=== PATIENT | female | born 1965 | race Hispanic/Latino ===

== ENCOUNTER 2017-02-04 13:03 | Emergency (ER) | payer MEDICAID ==
[2017-02-04 13:03] VITALS: BMI 26.5
[2017-02-04 13:39] VITALS: BP 120/84; PULSE 75; RESP 19; TEMP 98.9; O2SAT 100
--- NOTE | 2017-02-04 13:51 | ED PDOC ---
Arrival/HPI - General Chief Complaint: ENT Problem Time Seen by Provider: 02/04/17 13:47 Historian: Patient - History of Present Illness Narrative History of Present Illness (Text): 02/04/17 13:50 51-year-old female presents today with bilateral ear pain 1 week left greater than right. Patient denies fevers or chills. She is complaining of severe pain to the left ear worsening over the past few days. She describes the pain as sharp and throbbing. She is complaining of decreased hearing in the left ear. She is complaining of slight headache. Denies blurred vision. No medications have been taken for pain at home. Patient denies vomiting. No cough. Patient states the pain started in the right ear about a week ago. Time/Duration: 1 week Symptom Onset: Gradual Symptom Course: Worsening Quality: Pressure, Stabbing, Throbbing Severity Level: 8 Past Medical History - Provider Review Nursing Documentation Reviewed: Yes - Travel History Have you recently traveled outside [place] w/in the past 3 mons?: No - Infectious Disease Hx of Infectious Diseases: None - Tetanus Immunization Tetanus Immunization: Unknown - Reproductive Menopause: Yes - Psychiatric Hx Depression: No Hx Emotional Abuse: No Hx Physical Abuse: No Hx Substance Use: No - Surgical History Hx Cholecystectomy: Yes - Anesthesia Hx Anesthesia: Yes Hx Anesthesia Reactions: No Hx Malignant Hyperthermia: No - Suicidal Assessment Feels Threatened In Home Enviroment: No Family/Social History - Physician Review Nursing Documentation Reviewed: Yes Family/Social History: Unknown Family HX Smoking Status: Never Smoked Hx Alcohol Use: No Hx Substance Use: No Allergies/Home Meds Allergies/Adverse Reactions: Allergies tetracycline Allergy (Verified 02/04/17 13:28) ANAPHYLAXIS Home Medications: Home Meds Medication Instructions Recorded Confirmed Alprazolam [Xanax] 0.5 mg PO HS PRN 07/27/16 02/04/17 Paroxetine HCl [Paxil] 50 mg PO DAILY 07/27/16 02/04/17 Review of Systems - Review of Systems Constitutional: absent: Fatigue, Fevers Eyes: absent: Vision Changes, Photophobia ENT: Hearing Changes, Other (Bilateral ear pain left greater than right). absent: Sore Throat, Sinus Congestion Respiratory: absent: SOB, Cough Cardiovascular: absent: Chest Pain, Palpitations Gastrointestinal: absent: Abdominal Pain, Diarrhea, Nausea, Vomiting Genitourinary Female: absent: Dysuria Skin: absent: Rash, Pruritis Neurological: Headache. absent: Dizziness Physical Exam Vital Signs Reviewed: Yes Vital Signs Temp Pulse Resp BP Pulse Ox 02/04/17 13:23 98.9 F 75 19 120/84 100 Temperature: Afebrile Blood Pressure: Normal Pulse: Regular Respiratory Rate: Normal Appearance: Positive for: Well-Appearing, Non-Toxic, Comfortable Pain Distress: None Mental Status: Positive for: Alert and Oriented X 3 - Systems Exam Head: Present: Atraumatic Pupils: Present: PERRL Extroacular Muscles: Present: EOMI Conjunctiva: Present: Normal Ears: Present: Erythema, Normal Canal, Other (No mastoid tenderness or erythema. Right TM within normal limits). No: NORMAL TM (Left TM erythema, positive cerumen ) Mouth: Present: Moist Mucous Membranes. No: Dry, Drooling, Trismus Pharnyx: Present: Normal. No: ERYTHEMA, EXUDATE Nose (External): Present: Atraumatic Nose (Internal): Present: Normal Inspection Neck: Present: Normal Range of Motion, Trachea Midline. No: Lymphadenopathy Respiratory/Chest: Present: Clear to Auscultation, Good Air Exchange. No: Respiratory Distress, Accessory Muscle Use Cardiovascular: Present: Regular Rate and Rhythm, Normal S1, S2. No: Murmurs Neurological: Present: GCS=15, Speech Normal Skin: Present: Warm, Dry, Normal Color Psychiatric: Present: Alert, Oriented x 3 Medical Decision Making ED Course and Treatment: 02/04/17 13:53 Patient is nontoxic well appearing in no distress. Vital signs are stable pt with 1 week of worsening pain in left ear, slight pain in right ear. afebrile. no distress. toradol amoxicillin I advised follow up with primary care physician within the next 2 days, advised to increase fluids take medications as prescribed and return if symptoms worsen persist or if new symptoms develop IMPRESSION; otitis media Motrin every 6 hours as needed for pain/fever reduction Increase fluids Amoxicillin 3 times daily 10 days percocet;1 tablet every 6 hours as needed for moderate to severe pain: may cause drowsiness Follow up primary care physician within the next 2 days Follow-up with the ENT specialist within the next 2 days Return if symptoms worsen persist or if the symptoms develop - Medication Orders Current Medication Orders: Amoxicillin (Amoxil 500 Mg Cap) 500 mg PO STAT STA PRN Reason: Protocol Stop: 02/04/17 13:48 Ketorolac Tromethamine (Toradol) 60 mg IM STAT STA Stop: 02/04/17 13:48 Disposition/Present on Arrival - Present on Arrival Any Indicators Present on Arrival: No History of DVT/PE: No History of Uncontrolled Diabetes: No Urinary Catheter: No History of Decub. Ulcer: No History Surgical Site Infection Following: None - Disposition Have Diagnosis and Disposition been Completed?: Yes Diagnosis: Otitis media Disposition: HOME/ ROUTINE Disposition Time: 13:48 Patient Plan: Discharge Condition: GOOD Discharge Instructions (ExitCare): Otitis Media (ED) Additional Instructions: Motrin every 6 hours as needed for pain/fever reduction Increase fluids Amoxicillin 3 times daily 10 days percocet;1 tablet every 6 hours as needed for moderate to severe pain: may cause drowsiness Follow up primary care physician within the next 2 days Follow-up with the ENT specialist within the next 2 days Return if symptoms worsen persist or if the symptoms develop Prescriptions: Amoxicillin 500 mg PO TID #30 tab Ibuprofen [Motrin] 600 mg PO Q6H PRN #20 tab PRN Reason: pain/fever reduction oxyCODONE/Acetaminophen [Percocet 5/325 mg Tab] 1 tab PO Q6H PRN #5 tab PRN Reason: moderate to severe pain Referrals: Cecile Najera DO [Primary Care Provider] - Follow up with primary Isauro Martin DO [Staff Provider] - Follow up with primary
== END 2017-02-04 14:26 | disposition home or self-care (01) ==
LOC: ED 13:03
DX: H66.92 Otitis media, unspecified, left ear (principal)
CPT/HCPCS: 96372; 99283; J1885